=== PATIENT | female | born 1980 | race African-American/Black ===

== ENCOUNTER 2025-02-26 21:54 | Emergency (ER) | payer MEDICAID ==
[~2025-02-26] VITALS: Ht 188 cm; Wt 90.0 kg
[2025-02-26 22:02] VITALS: BP 103/72; TEMP 36.9
[2025-02-26 22:55] LABS: BASOPHILS % 0.7 % (0.0-2.0); EOSINOPHILS % 4.9 % (0.0-5.0); HEMATOCRIT. 39.0 % (36.0-48.0); HEMOGLOBIN. 13.0 g/dL (12.0-16.0); LYMPHOCYTES % 38.5 % (20.0-50.0); MEAN PLATELET VOLUME 7.3 fl (7.4-10.4); MONOCYTES % 9.6 % (2.0-8.0); NEUTROPHILS % 46.3 % (40.0-76.0); PLATELET 392 x1000/uL (130-400); RED BLOOD CELL COUNT 4.29 mill/uL (4.2-5.4); RED CELL DISTRIBUTION WIDTH 14.1 % (11.6-14.6)
[2025-02-26 23:00] VITALS: PULSE 88; RESP 20; O2SAT 96
[2025-02-26] MEDS: METHYLPREDNISOLONE SOD SUCC 125MG/2ML (ACT-O-VIAL) IV ONE (23:05)
[2025-02-26] MEDS: IPRATROPIUM BROMIDE (0.02%) 0.5MG/2.5ML NEB HHN SCH (23:06)
[2025-02-26] MEDS: ALBUTEROL (0.083%) 2.5MG/3ML NEB HHN SCH (23:06)
[2025-02-26 23:08] LABS: CREATININE 0.7 mg/dL (0.6-1.0)
[2025-02-26] MEDS: IPRATROPIUM BROMIDE (0.02%) 0.5MG/2.5ML NEB HHN ONE (23:08)
[2025-02-26 23:09] LABS: TROPONIN I HIGH SENSITIVITY < 4 ng/L (3.0-34); UREA NITROGEN BLOOD 14 mg/dL (9-23)
[2025-02-27] MEDS ORDERED: P50 MT (00:40)
[2025-02-27] MEDS ORDERED: ALBU18HF2 IH (00:40)
== END 2025-02-27 01:17 | disposition home or self-care (01) ==
LOC: ER 22:09
DX: J45.901 Unspecified asthma with (acute) exacerbation (principal); F15.10 Other stimulant abuse, uncomplicated
CPT/HCPCS: 80048; 80320; 83880; 85025; 84484; 36415; 71045; 93005; 94644; 96374; 99285; J2919; Z7610 ×3; 94640; 94664; 99406; G0480